=== PATIENT | male | born 1990 | race Caucasian/White ===

== ENCOUNTER 2023-10-07 09:29 | Emergency (ER) | payer OTHER, SELFPAY ==
[2023-10-07 09:30] VITALS: BP 156/90; PULSE 90; RESP 14; TEMP 36.3; O2SAT 97; BMI 35.2
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
--- NOTE | 2023-10-07 10:02 | DI.CT.S_ITS ---
PROCEDURE: CT CERVICAL SPINE WO CON INDICATIONS: neck pain fall TECHNIQUE: Noncontrast 3 mm thick sections acquired from the skull base to the T4 level. Sagittal and coronal reformats were then constructed. For radiation dose reduction, the following was used: automated exposure control, adjustment of mA and/or kV according to patient size. COMPARISON: None. FINDINGS: Image quality: Excellent. Bones: No fractures or dislocations. Visualized superior ribs are intact. Soft tissues: Prevertebral soft tissues are normal in thickness. No paravertebral hematomas. No apical pneumothoraces. IMPRESSION: No displaced fracture or traumatic subluxation. Dictated by: Da Quintana M.D. on 10/07/2023 at 9:21 Approved by: Da Quintana M.D. on 10/07/2023 at 9:22
[2023-10-07 10:40] VITALS: BP 138/89; PULSE 82; O2SAT 96
== END 2023-10-07 10:40 | disposition home or self-care (01) ==
PROVIDERS: Emergency Provider Emergency Medicine
DX: S01.81XA Laceration without foreign body of other part of head, initial encounter (principal); S16.1XXA Strain of muscle, fascia and tendon at neck level, initial encounter; R51.9 Headache, unspecified; W31.81XA Contact with recreational machinery, initial encounter; Y92.831 Amusement park as the place of occurrence of the external cause
CPT/HCPCS: 70450; 72125; 99281; 99283

== ENCOUNTER 2024-07-25 20:05 | Emergency (ER) | payer OTHER, SELFPAY ==
[2024-07-25 20:12] VITALS: BP 157/101; PULSE 83; RESP 18; TEMP 36.5; O2SAT 97; BMI 35.5
--- NOTE | 2024-07-25 20:26 | DI.RAD.S_ITS ---
PROCEDURE: XR ELBOW LT MIN 3V INDICATIONS: swelling TECHNIQUE: 3 views of the elbow were acquired. COMPARISON: None. FINDINGS: Bones: No fractures or dislocations. No suspicious bony lesions. Soft tissues: No elbow joint effusion. No suspicious soft tissue calcifications. IMPRESSION: No acute bony abnormality or significant joint effusion. Dictated by: Rajeev Carlson M.D. on 07/25/2024 at 21:20 Approved by: Rajeev Carlson M.D. on 07/25/2024 at 21:20
[2024-07-25 20:37] VITALS: BP 132/89; PULSE 78; PULSE 79; RESP 16; O2SAT 98; O2SAT 99
--- NOTE | 2024-07-25 20:52 | PC.NURSE ---
Swelling noted to left elbow. Used skin marker to surround reddened area.
[2024-07-25 20:54] LABS: Add Manual Diff / Slide Review NO; Basophils Absolute Auto 100 /uL (0-100); Basophils Percent Auto 0.7 % (0-2); Eosinophils Absolute Auto 300 /uL (0-450); Eosinophils Percent Auto 3.5 % (2-4); Hematocrit 45.8 % (41-53); Hemoglobin 16.1 g/dL (13.5-17.5); Lymphocytes Absolute Auto 2600 /uL (1100-4500); Lymphocytes Percent Auto 33.9 % (25-40); Mean Corpuscular HGB Conc 35.1 % (30-36); Mean Corpuscular Hemoglobin 30.7 PG (26-34); Mean Corpuscular Volume 87.6 fL (80-100); Monocytes Absolute Auto 400 /uL (0-900); Neutrophils Absolute Auto 4300 /uL (1500-7000); Neutrophils Percent Auto 56.9 % (50-75); Platelet Count 181 X10^3/uL (150-400); Red Blood Cell Count 5.22 X10^6/uL (4.5-5.9); Red Cell Distribution Width 12.6 % (11.6-14.8); White Blood Cell Count 7.6 X10^3/uL (4.5-11.0)
[2024-07-25 21:00] VITALS: BP 136/85; PULSE 75; O2SAT 98
[2024-07-25 21:00] LABS: Alanine Aminotransferase 54 IU/L (<50); Albumin 4.8 g/dL (3.5-5.0); Albumin Globulin Ratio 1.6 (1.0-2.8); Alkaline Phosphatase 71 U/L (38-126); Aspartate Aminotransferase 43 IU/L (17-59); Blood Urea Nitrogen 23 mg/dL (9-20); Calcium 9.4 mg/dL (8.4-10.2); Carbon Dioxide 24 mmol/L (22-32); Chloride 103 mmol/L (98-107); Estimated Glomerular Filt Rate > 60 mL/min (>60); Glucose 139 mg/dL (70-99); HEMOLYSIS 19 (0-50); Lipase 88 U/L (23-300); Potassium 3.9 mmol/L (3.4-5.1); Sodium 138 mmol/L (137-145); Total Protein 7.8 g/dL (6.3-8.2)
[2024-07-25 21:16] LABS: Procalcitonin < 0.030 ng/mL (<0.5)
[2024-07-25 21:30] VITALS: BP 137/81; PULSE 76; O2SAT 95
[2024-07-25 22:00] VITALS: BP 141/81; PULSE 75; RESP 21; O2SAT 96
--- NOTE | 2024-07-25 22:05 | ED_ITS ---
HPI - Extremity Problem General Chief complaint: Extremity Problem,Nontraumatic Stated complaint: lt elbow pain, swelling, hot Time Seen by Provider: 07/25/24 22:05 Source: patient Mode of arrival: Ambulatory History of Present Illness HPI Narrative: 33-year-old male without any significant past medical history comes into the ED from home for evaluation of left elbow swelling and pain, denies any injury or trauma, he states that pain started getting worse red he denies any numbness weakness tingling to the extremity, he states that he tried to see his primary care doctor but they did not get back to him before they closed therefore decided come into the ED for further evaluation treatment. Related Data Previous Rx's Medication Instructions Recorded cyclobenzaprine 10 mg tablet 10 mg PO TID #21 tabs 10/07/23 sulfamethoxazole 800 1 tab PO BID 1 week #14 tabs 07/25/24 mg-trimethoprim 160 mg tablet (Bactrim DS) Allergies Allergy/AdvReac Type Severity Reaction Status Date / Time Penicillins Allergy Unknown Verified 10/07/23 09:35 Review of Systems Review of Systems Narrative: General: Denies fever, chills, weight loss HEENT: Denies headache, eye drainage, eye irritation, head trauma, sore throat, voice change Cardiovascular: Denies any chest pain, palpitations, tachycardia Respiratory: Denies any shortness of breath, cough, wheeze, stridor GI/: Denies any abdominal pain, nausea, vomiting, diarrhea, bright red blood per rectum, melanotic stools, urinary frequency, urinary retention, dysuria, hematuria MSK: Positive left elbow pain Skin: Denies any rashes, lesions, discoloration Neuro: Denies any headache, lightheadedness, dizziness, fainting, weakness Psych: Denies SI/HI Patient History Social History Smoking Status: Never smoker Smoking Status: Never smoker alcohol intake frequency: holidays/special occasions only Exam Narrative Exam Narrative: General: Cooperative, well-developed, not in acute distress HEENT: Normocephalic, atraumatic, PERRLA, normal sclera, eyelids normal Neck: Active full range of motion, atraumatic Chest: Normal to inspection, negative crepitus, no overlying erythema ecchymosis Respiratory: Normal respiratory effort, not in acute respiratory distress, clear to auscultation bilaterally negative cough, wheeze, tachypnea, rhonchi, rales Cardiology: Regular rate rhythm negative gallop, murmur, rubs GI/: No tenderness to palpation, soft, non rigid, normal to inspection, exam deferred MSK: Full active range of motion in all 4 extremities, atraumatic, minor tenderness to palpation over the olecranon bursa, however patient with neurovascularly intact upper extremity, no micro motion tenderness Skin: Mild erythema noted over the olecranon bursa Neuro: Alert awake oriented x3, moves all 4 extremities spontaneously, cranial nerves intact, able to answer all questions appropriately follows commands appropriately Psych: Cooperative, negative suicidal or homicidal ideations Initial Vital Signs Initial Vital Signs: Vital Signs Temperature 97.7 F 07/25/24 20:12 Pulse Rate 83 07/25/24 20:12 Respiratory Rate 18 07/25/24 20:12 Blood Pressure 157/101 H 07/25/24 20:12 Pulse Oximetry 97 07/25/24 20:12 Oxygen Delivery Method Room Air 07/25/24 20:12 Course Orders Ordered: ED Orders 07/25/24 20:26 XR elbow LT min 3V Stat 07/25/24 20:30 Complete Blood Count AUTO DIFF Stat Comprehensive Metabolic Panel Stat Lactate (Lactic Acid) Stat Lipase Stat Procalcitonin Stat 07/25/24 21:00 Blood Culture Stat Vital Signs Vital signs: Vital Signs - 8 hr 07/25/24 20:12 07/25/24 20:37 07/25/24 20:37 Temperature 97.7 F Pulse Rate 83 79 78 Respiratory Rate 18 16 Blood Pressure 157/101 H 132/89 Pulse Oximetry 97 98 99 Oxygen Delivery Method Room Air Room Air MDM - Extremity (Nontraumatic) Lab Data 07/25/24 20:30 07/25/24 20:30 Labs: Lab Results 07/25/24 Range/Units 20:30 WBC 7.6 (4.5-11.0) X10^3/uL RBC 5.22 (4.5-5.9) X10^6/uL Hgb 16.1 (13.5-17.5) g/dL Hct 45.8 (41-53) % MCV 87.6 (80-100) fL MCH 30.7 (26-34) PG MCHC 35.1 (30-36) % RDW 12.6 (11.6-14.8) % Plt Count 181 (150-400) X10^3/uL Neut % (Auto) 56.9 (50-75) % Lymph % (Auto) 33.9 (25-40) % [place] % (Auto) 5.0 (3-14) % Eos % (Auto) 3.5 (2-4) % Baso % (Auto) 0.7 (0-2) % Neut # (Auto) 4300 (2081-3328) /uL Lymph # (Auto) 2600 (3794-0233) /uL [place] # (Auto) 400 (0-900) /uL Eos # (Auto) 300 (0-450) /uL Baso # (Auto) 100 (0-100) /uL Sodium 138 (137-145) mmol/L Potassium 3.9 (3.4-5.1) mmol/L Chloride 103 (98-107) mmol/L Carbon Dioxide 24 (22-32) mmol/L BUN 23 H (9-20) mg/dL Creatinine 1.00 (0.66-1.25) mg/dL Estimated GFR > 60 (>60) mL/min BUN/Creatinine Ratio 23.0 H (6-22) Glucose 139 H (70-99) mg/dL Lactate 1.0 (0.7-2.1) mmol/L Calcium 9.4 (8.4-10.2) mg/dL Total Bilirubin 1.0 (0.2-1.3) mg/dL AST 43 (17-59) IU/L ALT 54 H (<50) IU/L Alkaline Phosphatase 71 (38-126) U/L Total Protein 7.8 (6.3-8.2) g/dL Albumin 4.8 (3.5-5.0) g/dL Globulin 3.0 (1.7-4.1) g/dL Albumin/Globulin Ratio 1.6 (1.0-2.8) Lipase 88 (23-300) U/L Procalcitonin < 0.030 (<0.5) ng/mL Imaging Data Extremity x-ray #1: Radiologist's Impression: [address] [address] XRay Report Signed Patient: John Asencio MR#: [id number] : 1990 Acct:[id number] Age/Sex: 33 / M Date of Service: 07/25/24 Loc: ED Accession Number: [id number] Procedure: XR elbow LT min 3V Ordering Provider: Sylvain Hassan D.O. PROCEDURE: XR ELBOW LT MIN 3V INDICATIONS: swelling TECHNIQUE: 3 views of the elbow were acquired. COMPARISON: None. FINDINGS: Bones: No fractures or dislocations. No suspicious bony lesions. Soft tissues: No elbow joint effusion. No suspicious soft tissue calcifications. IMPRESSION: No acute bony abnormality or significant joint effusion. MDM Narrative Medical decision making narrative: 33-year-old male presenting for left elbow redness pain started spontaneously proximally a week ago no traumatic injury, states that symptoms have progressed therefore decided come into the ED for further evaluation treatment. On exam patient with erythema edema tenderness to palpation of the olecranon bursa, there is no overlying streaking, he is neurovascularly intact, there is no micro motion tenderness to palpation, patient without leukocytosis on lab work low suspicion for septic arthritis, however I did offer patient arthrocentesis of the area, however he states that he would like to defer this, He states that he would rather trial oral antibiotics and follow up with the primary care and orthopedic surgery in outpatient setting,given erythema we will treat for possible overlying cellulitis. patient was given strict return precautions he verbalized understanding of this and agrees to being discharged home with outpatient follow up Discharge Plan Departure Patient Disposition: Home Clinical Impression: Bursitis, olecranon Instructions: DI for Elbow Bursitis Activity Restrictions/Additional Instructions: Please follow up with the primary care and orthopedic surgery in outpatient setting if your symptoms do not improve Please read the discharge instructions sheet carefully and bring all papers to all doctor follow-up visits, as it may contain information that your doctor may want to see. Disease processes change and evolve, if your symptoms worsen or if you develop any new symptoms that are concerning to you please return for evaluation. Your evaluation today does not show any evidence of any life- threatening/serious illnesses requiring admission to the hospital or surgery. Please follow-up with your doctor for re-evaluation in approximately 1 day. Seek immediate medical attention for any worrisome symptoms. *If you do not have a primary care provider please contact the [facility] Resource line at [phone]. They will ask some questions about your medical history and help get you set up with a doctor in the community. Prescriptions: New sulfamethoxazole-trimethoprim [Bactrim DS] 800-160 mg tablet 1 tab PO BID 7 Days Qty: 14 0RF No Action cyclobenzaprine 10 mg tablet 10 mg PO TID Qty: 21 0RF Referrals: ProviderLamont [Primary Care Provider] - Stand Alone Forms: Patient Portal/API/Survey
[2024-07-25] MEDS: TRIMETH/SULFA 160/800 (DS) TABLET 1 TAB PO (22:27)
== END 2024-07-25 22:34 | disposition home or self-care (01) ==
PROVIDERS: Emergency Provider Student in an Organized Health Care Education/Training Program
DX: M70.22 Olecranon bursitis, left elbow (principal)
CPT/HCPCS: 36415; 73080; 80053; 83605; 83690; 84145; 85025; 87040; 99284